=== PATIENT | female | born 1995 | race African-American/Black ===

== ENCOUNTER 2018-10-14 02:08 | Emergency (ER) | payer MEDICAID ==
[2018-10-14] MEDS ORDERED: FAMOTIDINE INJ/PF 20 MG/2 ML SDV IV ONE (03:12)
--- NOTE | 2018-10-14 03:28 | ER Document Report ---
ED General - General Chief Complaint: Vomiting Stated Complaint: VOMITING Time Seen by Provider: 10/14/18 03:04 Notes: Patient is a very pleasant 23-year-old female who presents with complaints of nausea vomiting. She is 17 weeks . She denies any pain in her chest or abdomen. She says she had some burning in her throat like acid reflux tonight. She then became nauseous and vomited several times. She says after vomiting partially 4 times she then brought up several small blood clots. She says she brought up approximately 3 blood clots. She has not vomited since then. She continues not have any pain now. She says she is no longer nauseous. She has no previous history of GI bleeding. No other complaints at this time. TRAVEL OUTSIDE OF THE [place] IN LAST 30 DAYS: No - Related Data Allergies/Adverse Reactions: No Known Allergies Allergy (Unverified 10/14/18 02:41) Past Medical History - Social History Smoking Status: Never Smoker Frequency of alcohol use: None Drug Abuse: None Family History: Reviewed & Not Pertinent Patient has suicidal ideation: No Patient has homicidal ideation: No Renal/ Medical History: Denies: Hx Peritoneal Dialysis Review of Systems - Review of Systems Notes: My Normal Review Basic REVIEW OF SYSTEMS: CONSTITUTIONAL : Denies fever, chills, or sweats. Denies recent illness. CARDIOVASCULAR: Denies chest pain. RESPIRATORY: Denies cough, cold, or chest congestion. Denies shortness of breath, difficulty breathing, or wheezing. GASTROINTESTINAL: Denies abdominal pain. Vomiting GENITOURINARY: Denies difficulty urinating, painful urination, burning, frequency, or blood in urine. FEMALE GENITOURINARY: Denies vaginal bleeding, abnormal or irregular periods. Currently : MUSCULOSKELETAL: Denies neck or back pain or joint pain or swelling. SKIN: Denies rash or skin lesions. HEMATOLOGIC : No history of easy bleeding. NEUROLOGICAL: Denies altered mental status or loss of consciousness. Denies headache. Denies weakness or paralysis or loss of use of either side. Denies problems with gait or speech. Denies sensory or motor loss. ALL OTHER SYSTEMS REVIEWED AND NEGATIVE. Physical Exam - Vital signs Vitals: Temp Pulse Resp BP Pulse Ox 98.8 F 75 16 113/53 L 99 10/14/18 02:32 10/14/18 02:32 10/14/18 02:32 10/14/18 02:32 10/14/18 02:32 - Notes Notes: General Appearance: Well nourished, alert, cooperative, no acute distress, no obvious discomfort. well-appearing. Vitals: reviewed, See vital signs table. Head: no swelling or tenderness to the head Eyes: PERRL, EOMI, Conjuctiva clear Mouth: No decreasd moisture Lungs: No wheezing, No rales, No rhonci, No accessory muscle use, good air exchange bilaterally. Heart: Normal rate, Regular rythm, No murmur, no rub Abdomen: Normal BS, soft, No rigidity, normal abdominal tenderness to palpation., No guarding, no rebound, no abdominal masses, no organomegaly Extremities: strength 5/5 in all extremities, good pulses in all extremities, no swelling or tenderness in the extremities, no edema. Skin: warm, dry, appropriate color, no rash Neuro: speech clear, oriented x 3, normal affect, responds appropriately to questions. Course - Re-evaluation Re-evalutation: 10/14/18 04:42 Patient has had no vomiting while here in the ER. She looks and feels well. She has no pain. I asked her if she had any further concerns and she does mention that she has had some intermittent cramping in her pelvic region. She says that this is actually ongoing throughout almost her entire . She seen her OB doctor about several times there was told that it was normal. She has had urinalysis testing which is been negative. She denies any dysuria. No abnormal vaginal discharge or bleeding. She denies concerns for sexually transmitted diseases. I did do a bedside ultrasound and the baby has good movement and a heart rate of 159. I talked her about her nausea and vomiting. I suspect most likely her vomiting is related to acid reflux being that she had burning in her throat and acid reflux type symptoms prior to the vomiting starting. She did vomit a little bit of blood towards the end of her vomiting episode which suggest that she probably has some esophageal irritation or abrasion from the vomiting. Her hemoglobin is normal. She looks well. She has no further vomiting and has no pain in her chest or abdomen therefore I know she is safe to be discharged home. I will place her on Pepcid. I will give her a prescription for Zofran. I informed her she must have a very low threshold to return to ER if she has recurrent vomiting, any vomiting of blood whatsoever, any pain in her chest or abdomen, or if she feels unwell. Patient agrees with plan will be discharged home. Dictation of this chart was performed using voice recognition software; therefore, there may be some unintended grammatical errors. - Vital Signs Vital signs: Temp Pulse Resp BP Pulse Ox 98.8 F 75 16 113/53 L 99 10/14/18 02:32 10/14/18 02:32 10/14/18 02:32 10/14/18 02:32 10/14/18 02:32 - Laboratory Result Diagrams: 10/14/18 03:40 10/14/18 03:40 Laboratory results interpreted by me: 10/14/18 10/14/18 03:40 03:40 WBC 11.8 H Absolute Neutrophils 8.9 H Chloride 109 H Carbon Dioxide 21 L Total Protein 6.2 L Discharge - Discharge Clinical Impression: Vomiting Qualifiers: Vomiting type: unspecified Vomiting Intractability: non-intractable Nausea presence: with nausea Qualified Code(s): R11.2 - Nausea with vomiting, unspecified Condition: Good Disposition: HOME, SELF-CARE Additional Instructions: Please take the Pepcid every day as prescribed. Please also take the Zofran as needed for nausea. Please have a low threshold to return to the ER if you have recurrent vomiting, any vomiting of blood, any abdominal pain, fevers or if you feel unwell in any way. Please follow-up with your REHABILITATION MEDICINE PHYSICIAN doctor this week for reevaluation. Prescriptions: Famotidine [Pepcid 20 mg Tablet] 20 mg PO BID #60 tablet Ondansetron [Zofran Odt 4 mg Tablet] 1 tab PO Q4H PRN #15 tab.rapdis PRN Reason: For Nausea/Vomiting Forms: Return to Work
[2018-10-14 03:51] LABS: ABSOLUTE EOSINOPHILS # (AUTO) 0.1 10^3/uL (0.0-0.6); ABSOLUTE LYMPHOCYTES (AUTO) 2.1 10^3/uL (0.5-4.7); ABSOLUTE MONOCYTES (AUTO) 0.7 10^3/uL (0.1-1.4); ABSOLUTE NEUT (AUTO) 8.9 10^3/uL (1.7-8.2); BASOPHILS % (AUTO) 0.2 % (0-2); EOSINOPHILS % (AUTO) 0.7 % (0-6); HEMATOCRIT 36.7 % (36.0-47.0); HEMOGLOBIN 12.7 g/dL (12.0-15.5); LYMPHOCYTES % (AUTO) 17.5 % (13-45); MEAN CORPUSCULAR HEMOGLOBIN 30.1 pg (27.0-33.4); MEAN CORPUSCULAR HGB CONC 34.5 g/dL (32.0-36.0); MEAN CORPUSCULAR VOLUME 87 fl (80-97); MONOCYTES % (AUTO) 6.2 % (3-13); PLATELET COUNT 201 10^3/uL (150-450); RED BLOOD COUNT 4.21 10^6/uL (3.72-5.28); RED CELL DISTRIBUTION WIDTH 13.7 % (11.5-14.0); SEGMENTED NEUTROPHILS % (AUTO) 75.4 % (42-78); TOTAL CELLS COUNTED % (AUTO) 100 %; WHITE BLOOD COUNT 11.8 10^3/uL (4.0-10.5)
[2018-10-14 04:07] LABS: ALANINE AMINOTRANSFERASE 16 U/L (9-52); ALBUMIN 3.5 g/dL (3.5-5.0); ALKALINE PHOSPHATASE 90 U/L (38-126); ANION GAP 8 (5-19); ASPARTATE AMINO TRANSFERASE 35 U/L (14-36); BILIRUBIN,DIRECT 0.3 mg/dL (0.0-0.4); BILIRUBIN,TOTAL 0.4 mg/dL (0.2-1.3); BLOOD UREA NITROGEN 13 mg/dL (7-20); CARBON DIOXIDE 21 mmol/L (22-30); CHLORIDE 109 mmol/L (98-107); GLUCOSE 82 mg/dL (75-110); SODIUM 137.6 mmol/L (137-145); TOTAL PROTEIN 6.2 g/dL (6.3-8.2)
[2018-10-14] MEDS ORDERED: ONDANSETRON ODT 4 MG TAB (6 TAB/ER DISP) PO PRN (04:42)
[2018-10-14 05:06] VITALS: BP 109/57
== END 2018-10-14 05:03 | disposition home or self-care (01) ==
LOC: ER 02:08
DX: O99.612 Diseases of the digestive system complicating pregnancy, second trimester (principal); K92.0 Hematemesis; O26.892 Other specified pregnancy related conditions, second trimester; R10.2 Pelvic and perineal pain; Z3A.17 17 weeks gestation of pregnancy
CPT/HCPCS: 99283; 96374; 36415; 85025; 80053; S0028

== ENCOUNTER 2018-10-14 21:25 | Emergency (ER) | payer MEDICAID ==
[2018-10-14] MEDS ORDERED: NORMAL SALINE 1000 ML 1,000 ML IV ONE (22:50)
[2018-10-14] MEDS ORDERED: METOCLOPRAMIDE HCL INJ/PF 10 MG/2 ML SDV IV ONE (22:50)
[2018-10-14] MEDS ORDERED: FAMOTIDINE 20 MG TABLET PO ONE (22:50)
[2018-10-14 23:16] LABS: ABSOLUTE EOSINOPHILS # (AUTO) 0.1 10^3/uL (0.0-0.6); ABSOLUTE LYMPHOCYTES (AUTO) 2.2 10^3/uL (0.5-4.7); ABSOLUTE MONOCYTES (AUTO) 0.6 10^3/uL (0.1-1.4); ABSOLUTE NEUT (AUTO) 8.3 10^3/uL (1.7-8.2); BASOPHILS % (AUTO) 0.3 % (0-2); EOSINOPHILS % (AUTO) 0.8 % (0-6); HEMATOCRIT 37.4 % (36.0-47.0); LYMPHOCYTES % (AUTO) 19.8 % (13-45); MEAN CORPUSCULAR HEMOGLOBIN 30.4 pg (27.0-33.4); MEAN CORPUSCULAR HGB CONC 34.9 g/dL (32.0-36.0); MEAN CORPUSCULAR VOLUME 87 fl (80-97); MONOCYTES % (AUTO) 5.6 % (3-13); PLATELET COUNT 203 10^3/uL (150-450); RED BLOOD COUNT 4.28 10^6/uL (3.72-5.28); RED CELL DISTRIBUTION WIDTH 13.6 % (11.5-14.0); SEGMENTED NEUTROPHILS % (AUTO) 73.5 % (42-78); TOTAL CELLS COUNTED % (AUTO) 100 %; WHITE BLOOD COUNT 11.2 10^3/uL (4.0-10.5)
[2018-10-14 23:35] LABS: ALANINE AMINOTRANSFERASE 35 U/L (9-52); ALBUMIN 3.6 g/dL (3.5-5.0); ALKALINE PHOSPHATASE 69 U/L (38-126); ANION GAP 10 (5-19); ASPARTATE AMINO TRANSFERASE 25 U/L (14-36); BILIRUBIN,DIRECT 0.1 mg/dL (0.0-0.4); BILIRUBIN,TOTAL 0.2 mg/dL (0.2-1.3); BLOOD UREA NITROGEN 13 mg/dL (7-20); CALCIUM 9.1 mg/dL (8.4-10.2); CARBON DIOXIDE 22 mmol/L (22-30); CHLORIDE 106 mmol/L (98-107); GLUCOSE 72 mg/dL (75-110); POTASSIUM 3.9 mmol/L (3.6-5.0); SODIUM 137.6 mmol/L (137-145); TOTAL PROTEIN 6.3 g/dL (6.3-8.2)
--- NOTE | 2018-10-15 00:33 | ER Document Report ---
ED General - General Chief Complaint: Nausea/Vomiting Stated Complaint: VOMITING BLOOD Time Seen by Provider: 10/14/18 22:49 Notes: Patient is a 23-year-old female currently 17 weeks who presents with one additional episode of vomiting today in which she brought up small flecks of blood with the vomitus. She was seen in the emergency department last night for similar symptoms although was vomiting at a much higher frequency at that time. She states that since that episode of vomiting she has been able to tolerate oral intake without any difficulty. She denies any focal abdominal pain, vaginal bleeding or vaginal discharge. No chest pain. No shortness of breath. No melena or hematochezia. Nothing has improved or worsen her symptoms although she notes she has not yet started the medications as prescribed yesterday. Has not followed up with her primary care doctor yet. Denies any syncope. No history of similar symptoms prior to the past several days. Does not take any form of anticoagulation. TRAVEL OUTSIDE OF THE [place] IN LAST 30 DAYS: No - Related Data Allergies/Adverse Reactions: No Known Allergies Allergy (Unverified 10/14/18 02:41) Past Medical History - General Information source: Patient - Social History Smoking Status: Never Smoker Chew tobacco use (# tins/day): No Frequency of alcohol use: None Drug Abuse: None Lives with: Family Family History: Reviewed & Not Pertinent Patient has suicidal ideation: No Patient has homicidal ideation: No Renal/ Medical History: Denies: Hx Peritoneal Dialysis Review of Systems - Review of Systems Notes: Constitutional: Negative for fever. HENT: Negative for sore throat. Eyes: Negative for visual changes. Cardiovascular: Negative for chest pain. Respiratory: Negative for shortness of breath. Gastrointestinal: Negative for abdominal pain, positive for vomiting Genitourinary: Negative for dysuria. Musculoskeletal: Negative for back pain. Skin: Negative for rash. Neurological: Negative for headaches, weakness or numbness. 10 point ROS negative except as marked above and in HPI. Physical Exam - Vital signs Vitals: Temp Pulse Resp BP Pulse Ox 98.2 F 84 18 105/64 100 10/14/18 22:04 10/14/18 22:04 10/14/18 22:04 10/14/18 22:04 10/14/18 22:04 Interpretation: Normal Notes: PHYSICAL EXAMINATION: GENERAL: Well-appearing, well-nourished and in no acute distress. HEAD: Atraumatic, normocephalic. EYES: Pupils equal round and reactive to light, extraocular movements intact, sclera anicteric, conjunctiva are normal. ENT: nares patent, oropharynx clear without exudates. Moist mucous membranes. NECK: Normal range of motion, supple without lymphadenopathy LUNGS: Breath sounds clear to auscultation bilaterally and equal. No wheezes rales or rhonchi. HEART: Regular rate and rhythm without murmurs ABDOMEN: Soft, gravid uterus, nontender, normoactive bowel sounds. No guarding, no rebound. No masses appreciated. EXTREMITIES: Normal range of motion, no pitting or edema. No cyanosis. NEUROLOGICAL: No focal neurological deficits. Moves all extremities spontaneously and on command. PSYCH: Normal mood, normal affect. SKIN: Warm, Dry, normal turgor, no rashes or lesions noted. Course - Re-evaluation Re-evalutation: 10/15/18 00:31 Presentation of a well-appearing 23-year-old female in no acute distress who presented complaining of one episode of vomiting today. The patient has a picture of the vomitus with her and does show several very small flecks of blood in the vomit. She states that she followed return precautions given yesterday and return to the emergency department. Patient is otherwise very well in appearance. Has tolerated oral intake since the episode of vomiting without difficulty. Vitals within normal lives at the time of my assessment. No focal abdominal tenderness. Her hemoglobin is actually increased from yesterday from 12.7-13. Suspect that this is not simply moist mucosal irritation from recurrent episodes of vomiting and have advised the patient that she may have a very small flecks of blood similar to what she experienced today in vomiting if she has further episodes. Clarified that should she have large quantities of blood and that she should immediately return. Advised continuation of famotidine and ondansetron as prescribed yesterday. At this time will discharge with return precautions and follow-up recommendations. Verbal discharge instructions given a the bedside and opportunity for questions given. Medication warnings reviewed. Patient is in agreement with this plan and has verbalized understanding of return precautions and the need for primary care follow-up in the next 24-72 hours. - Vital Signs Vital signs: Temp Pulse Resp BP Pulse Ox 98.2 F 84 18 105/64 100 10/14/18 22:04 10/14/18 22:04 10/14/18 22:04 10/14/18 22:04 10/14/18 22:04 - Laboratory Result Diagrams: 10/14/18 23:08 10/14/18 23:08 Laboratory results interpreted by me: 10/14/18 10/14/18 23:08 23:08 WBC 11.2 H Absolute Neutrophils 8.3 H Glucose 72 L Discharge - Discharge Clinical Impression: Nausea and vomiting Qualifiers: Vomiting type: unspecified Vomiting Intractability: non-intractable Qualified Code(s): R11.2 - Nausea with vomiting, unspecified Condition: Good Disposition: HOME, SELF-CARE Additional Instructions: You have been seen in the Emergency Department (ED) today for nausea and vomiting. Your work up today has not shown a clear cause for your symptoms. Could be related to your or an underlying viral illness. As we discussed, it is not unusual to have small amounts of blood in your vomitus when you have been vomiting repeatedly. Please continue to take the medications as prescribed by Dr. Barraza yesterday. Follow up with your doctor as soon as possible regarding today's emergent visit and your symptoms of nausea. Return to the Emergency Department (ED) if you develop abdominal pain, if you vomit increasing quantities of blood, if you are unable to tolerate fluids due to vomiting, or if you develop other symptoms that concern you.
[2018-10-15 00:49] VITALS: BP 106/62
== END 2018-10-15 01:00 | disposition home or self-care (01) ==
LOC: ER 21:25
DX: O99.612 Diseases of the digestive system complicating pregnancy, second trimester (principal); K92.0 Hematemesis; T47.0X6A Underdosing of histamine H2-receptor blockers, initial encounter; T45.0X6A Underdosing of antiallergic and antiemetic drugs, initial encounter; Z91.128 Patient's intentional underdosing of medication regimen for other reason; Z91.14 Patient's other noncompliance with medication regimen; Z3A.17 17 weeks gestation of pregnancy
CPT/HCPCS: 99283; 96361; 96374; 36415; 85025; 80053; J3490; J2765; J7030